=== PATIENT | male | born 1945 | race Caucasian/White ===

== ENCOUNTER 2016-04-09 18:59 | Inpatient (IN) | payer MEDICARE, BC ==
--- NOTE | 2016-04-09 19:17 | ED ---
Altered Mental Status - HPI Summary HPI Summary: Patient presents for evaluation of altered mental status from home. Son found him sonorous and called EMS. EMS arrived to find him hypotensive and minimally responsive. Gave 2 mg of intranasal narcan and 1.6 mg if IV narcan with improvement to responsiveness. 3 weeks ago. He lives alone. He claims to have forgotten how much morphine he took. Denies taking other medications. Unreliable history due to circumstances and alteration. - History Of Current Complaint Chief Complaint: EDAltMentalStatus Stated Complaint: POSS OVERDOSE Time Seen by Provider: 04/09/16 19:08 Hx Obtained From: Patient, Family/Pointer Machine Operator, EMS Hx From Patient Unobtainable Due To: Altered Mental Status Onset/Duration: Unknown Timing: Constant Severity Initially: Severe Severity Currently: Moderate Character: Confusion Alleviating Factor(s): Unknown - Allergies/Home Medications Allergies/Adverse Reactions: Allergies Allergy/AdvReac Type Severity Reaction Status Date / Time Indomethacin [From Indocin] Allergy ringing in Verified 03/09/16 22:32 ears, "turn rachel" PMH/Surg Hx/FS Hx/Imm Hx Previously Healthy: No Cardiovascular History: Reports: Hx Hypotension History: Reports: Hx Kidney Stones Musculoskeletal History: Reports: Other Musculoskeletal History - chronic lower spine pain Neurological History: Reports: Other Neuro Impairments/Disorders - Parkinson's Psychiatric History: Reports: Hx Post Traumatic Stress Disorder Denies: Hx Eating Disorder, Hx of Violent Episodes Against Others - Family History Known Family History: Positive: Cardiac Disease Negative: Hypertension, Diabetes - Social History Alcohol Use: None Substance Use Type: Reports: None Substance Use Comment - Amount & Last Used: prescribed morphine for back pain Smoking Status (MU): Light Every Day Tobacco Smoker Type: Cigars Review of Systems All Other Systems Reviewed And Are Negative: Yes - Comments Additional Review of Systems Comments: Unable to perform ROS due to altered mental status. Physical Exam Triage Information Reviewed: Yes Vital Signs Reviewed: Yes Completion Of Physical Exam Limited Due To: Altered Mental Status Appearance: Positive: Well-Appearing, No Pain Distress, Well-Nourished Skin: Positive: Warm, Skin Color Reflects Adequate Perfusion, Dry Head/Face: Positive: Normal Head/Face Inspection Eyes: Positive: Normal, EOMI, GUANAKO ENT: Positive: Normal ENT inspection, Hearing grossly normal, Pharynx normal Neck: Positive: Supple, Nontender, No Lymphadenopathy Respiratory/Lung Sounds: Positive: Clear to Auscultation, Breath Sounds Present Cardiovascular: Positive: Normal, Pulses are Symmetrical in both Upper and Lower Extremities, Tachycardia Abdomen Description: Positive: Nontender, No Organomegaly, Soft Musculoskeletal: Positive: Normal, Strength/ROM Intact Neurological: Positive: Disoriented, Unable to Assess Gait, Facial Symmetry. Negative: Receptive Aphasia, Expressive Aphasia, Babinski Left, Babinski Right, Babinski Bilateral, Facial Droop, Focal Deficit @, Slurred Speech, Dysarthric Aphasia Diagnostics - Laboratory Result Diagrams: 04/09/16 19:15 04/09/16 19:15 Lab Statement: Any lab studies that have been ordered have been reviewed, and results considered in the medical decision making process. - EKG No standard instances EKG Rhythm: Sinus Tachycardia ST Segment: Normal Ectopy: None - Normal ND/QRS/QTC Altered Mental Statu Course/Dx - Diagnoses Differential Diagnosis/HQI/PQRI: CVA, Intracranial Bleed, Medication Reaction, Metabolic Disorder, Overdose, Other - Unclear whether this was overdose, metabolic derangement, ICH. Possible psychiatric cause due to grief. Planned admission for further evaluation. Discharge Diagnoses: Intentional overdose of drug in tablet form, Severe major depression - Provider Notifications Discussed Care Of Patient With: Discussed case with Dr. Morocho and patient' s brother, Fortino, to further discover that patient has been giving money and objects away, trying to meet women on line, hung herself in the home 4 weeks ago, lives alone, and now left a note that he was going to kill himself. He needs admission for medical stabilization; however, has high SI/HI risk and needs psychiatric evaluation once medically stable. Instructed by Provider To: Admit As Inpatient - Critical Care Time Critical Care Time: 30-74 min Discharge - Discharge Plan Condition: Guarded Disposition: ADMITTED TO [facility]
[2016-04-09 19:22] LABS: Hematocrit 45 % (42-52); Hemoglobin 14.8 g/dl (14.0-18.0); Mean Corpuscular HGB Conc 33 g/dl (31-36); Mean Corpuscular Hemoglobin 32 pg (27-31); Mean Corpuscular Volume 97 fL (80-94); Mean Platelet Volume 8 um3 (7.4-10.4); Red Blood Count 4.62 10^6/ul (4.0-5.4); Red Cell Distribution Width 13 % (10.5-15); White Blood Count 14.5 10^3/ul (3.5-10.8)
[2016-04-09 19:38] LABS: ALT 18 U/L (7-52); AST 23 U/L (13-39); Albumin 3.9 g/dL (3.2-5.2); Alkaline Phosphatase 66 U/L (34-104); Anion Gap 6 mmol/L (2-11); BUN/Creatinine Ratio 15.3 (8-20); Blood Urea Nitrogen 20 mg/dL (6-24); CO2 Carbon Dioxide 24 mmol/L (22-32); Chloride 104 mmol/L (101-111); EGFR African American 69.8 (>60); EGFR Non-African American 54.3 (>60); Globulin 3.1 g/dL (2-4); Glucose 223 mg/dL (70-100); Potassium 4.3 mmol/L (3.5-5.0); Sodium 134 mmol/L (133-145)
--- NOTE | 2016-04-09 19:47 | RAD ---
HISTORY: Altered mental status COMPARISONS: None TECHNIQUE: Multiple contiguous axial CT scans were obtained of the head without intravenous contrast. FINDINGS: The study is limited by patient motion artifact. HEMORRHAGE/INFARCT: There is no hemorrhage or acute infarct. MASSES/SHIFT: There is no mass or shift. EXTRA-AXIAL SPACES: There are no extra-axial fluid collections. SULCI AND VENTRICLES: The sulci and ventricles are normal in size and position for the patient's stated age. CEREBRUM: There are no focal parenchymal abnormalities. BRAINSTEM: There are no focal parenchymal abnormalities. CEREBELLUM: There are no focal parenchymal abnormalities. VESSELS: The vessels are grossly normal. PARANASAL SINUSES: The paranasal sinuses are clear. ORBITS: The orbits are unremarkable. BONES AND SOFT TISSUE: No bone or soft tissue abnormalities are noted. OTHER: None IMPRESSION: NO ACUTE INTRACRANIAL PATHOLOGY.
--- NOTE | 2016-04-09 19:50 | RAD ---
HISTORY: Altered mental status COMPARISONS: September 17, 2015 VIEWS:1: Single frontal portable view of the chest at 7:36 PM FINDINGS: LINES AND TUBES: None. CARDIOMEDIASTINAL SILHOUETTE: The cardiomediastinal silhouette is normal for portable technique. PLEURA: The costophrenic angles are sharp. No pleural abnormalities are noted. LUNG PARENCHYMA: There is hyperinflation. There is stable pleural parenchymal scarring of the right midlung. There is patchy alveolar opacification lung bases bilaterally ABDOMEN: The upper abdomen is clear. There is no subphrenic gas. BONES AND SOFT TISSUES: No bone or soft tissue abnormalities are noted. IMPRESSION: HYPERINFLATION WITH BIBASILAR PATCHY ATELECTASIS VERSUS EARLY CONSOLIDATION
[2016-04-09] MEDS ORDERED: Naloxone* 0.4 MG/ML 10 ML VIAL ONE ×2 (19:55→23:20)
[2016-04-09 19:58] LABS: Acetaminophen < 15 mcg/mL; Salicylate < 2.50 mg/dL (<30)
[2016-04-09] MEDS ORDERED: Naloxone* 0.4 MG/ML 1 ML VIAL IV PUSH ONE (19:59)
[2016-04-09 20:10] LABS: Urine Bacteria Absent (Absent); Urine Bilirubin Negative (Negative); Urine Glucose Negative (Negative); Urine Nitrite Negative (Negative)
[2016-04-09] MEDS ORDERED: Piperac/Tazob 3.375 gm in NS* 3.375 GM/100 ML BAG IVPB ONE (21:00)
[2016-04-09] MEDS: Naloxone* 2 MG in NS 0.9% 250 ML* 245 ML IV SCH ×2 (21:00→23:17)
--- NOTE | 2016-04-09 21:14 | PN ---
Progress Note - Progress Note Note: Discussed with Yovani Welch NP. Mr Joshua is a 70YO male HX suicide attempts unfortunately lost his 2016 who hung herself at their home. He was found by his son this evening to be lethargic after having taken all the morphine he had on hand. Mr Joshua denied suicidal attempt in the ED, but the officer who investigated reported his cell phone was found next to him with an unsent suicide email. Will monitor closely and obtain psychiatric consultation once medically stable. The potential for ECT should be specifically addressed.
[2016-04-09] MEDS ORDERED: NS 0.9% 1000 ML* 1,000 ML IV SCH (21:30)
--- NOTE | 2016-04-09 21:39 | HP ---
AMENDED REPORT NOW INCLUDES COSIGNER DESIGNATION - ESIGNED BEFORE ADJUSTMENT HISTORY AND PHYSICAL: DATE OF ADMISSION: 04/09/16 PRIMARY CARE PHYSICIAN: At the [facility], physician not listed. ATTENDING PHYSICIAN: Dr. Raphael Rojo * (dictation provided by Lisa Welch NP) CHIEF COMPLAINT: Overdose with suicide attempt. HISTORY OF PRESENT ILLNESS: Mr. Joshua is a 70-year-old male with a past medical history of depression, PTSD, and chronic back pain who presented to the hospital today after being found next to an empty bottle of morphine and a suicide note by a neighbor. The patient is unresponsive and not able to provide details. Information was obtained from the medical record and from the patient's brother, who is at the bedside. 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 The patient hung herself and was discovered by the patient on 03/17/16. The patient had significant distress after this and was ultimately hospitalized at [facility] and then transferred to the [facility]. He spent several weeks at these facilities undergoing treatment. The patient was felt to be stable and discharged to home. The patient does have an ongoing history of PTSD for which he is declared "totally disabled" per his brother. He has had a history of suicide attempt in 2001 per our records. In addition to these psychiatric problems, the patient's brother reports that he has chronic back pain related to a back surgery that "went wrong " and he also has a history of Parkinson's disease, which was recently diagnosed. Apparently today, the patient's neighbor, who frequently visits, came to the home and found the patient next to an empty bottle of morphine with a suicide note. In the emergency room, Mr. Joshua was given Narcan. At the time of my evaluation, his respiratory rate is greater than 10, his O2 saturation is greater than 95% on 3 L nasal cannula. He arouses to voice, but is fairly incoherent. Based on Mr. Joshua's presentation with narcotic overdose and suicide attempt, Hospital Medicine was called regarding admission. PAST MEDICAL HISTORY: 1. PTSD. 2. Chronic back pain, on narcotics. 3. Depression. 4. Suicide attempt. 5. Parkinson's disease. MEDICATIONS: The police brought in several dozen bottles of the patient's medications and the nursing staff are currently going through those. The H and P will be amended when the list is available and complete. ALLERGIES: INDOMETHACIN. FAMILY HISTORY: Unobtainable. SOCIAL HISTORY: Unobtainable. REVIEW OF SYSTEMS: Unobtainable. PHYSICAL EXAMINATION GENERAL: Mr. Joshua is lying in bed, he is in no acute distress. VITAL SIGNS: Temperature 97.4, heart rate 107, respiratory rate 12, O2 saturation 97% on 3 L, and blood pressure 114/77. LUNGS: With coarse rhonchi bilaterally, but good aeration. No accessory muscle use. HEART: S1 and S2. No murmur, rub, or gallop and regular. ABDOMEN: Soft and nontender with bowel sounds positive x4. EXTREMITIES: No cyanosis or edema. NEUROLOGIC: He arouses easily to voice. He opens his eyes. He follows commands. He is not speaking at this time. He is nodding his head. He seemed to move all extremities equally. There is no fascial asymmetry. SKIN: Intact. LABORATORY DATA: WBC 14.5, hemoglobin 14.8, hematocrit 45, platelet count 188 , INR 0.97. Sodium 134, potassium 4.3, chloride 104, serum bicarbonate 24, BUN 20, creatinine 1.31, glucose 223, lactic acid 2.1. Urine shows no evidence of infection. Tox screen shows no salicylates or acetaminophens. CT of the brain shows no acute intracranial pathology. Chest x-ray shows hyperinflation with bibasilar patchy atelectasis versus early consolidation. ASSESSMENT: Mr. Joshua is a 70-year-old male with a past medical history of depression, suicide attempt, posttraumatic stress disorder, and Parkinson's disease who presents to the hospital today after being found next to an empty bottle of morphine with a suicide note. Our plans are for inpatient admission to the intensive care unit as I expect his length of stay to be greater than 2 days for the followin. Narcotic overdose and suicide attempt: The patient has responded well to Narcan thus far in the emergency room. His respiratory rate is actually over 20 and he is arousing easily to stimulation. Plan to continue to monitor, but will start a Narcan drip if and when that is necessary. The patient will be seen by Psychiatry when he is awake and able to speak with them. I will note that he was hospitalized at [facility] and then at [facility] in [place]. The patient will have a one-to- one. 2. Question of aspiration pneumonia: The patient does have rhonchi on examination and there is question of consolidation with the x-ray. The patient also has leukocytosis to 14. I think he is at high risk for aspiration pneumonia and we will start Zosyn tonight. This can be de-escalated if there is no clear evidence of aspiration as the clinical course involves. 3. Parkinson's disease. The patient's medication list is being updated once he is more arousable and awake and interactive. We can resume his medications. 4. History of chronic back pain. Once the patient is arousable, will likely need to resume some form of narcotic for him or else he will go into withdrawal. We will look to do that tomorrow. 5. DVT prophylaxis with heparin subcu. 6. Disposition to intensive care unit. 7. Code status is full code for now until he is able to make decisions. TIME SPENT: Approximately 60 minutes were spent on the admission of this patient, more than half the time spent with the patient at the bedside reviewing the events leading up to this hospitalization, performing the physical examination, and reviewing [place] [id number]/ISABELLE #: [id number] BINU
[2016-04-09] MEDS ORDERED: NS 0.9% 250 ML* 250 ML ONE ×3 (22:59→23:00)
[2016-04-09] MEDS: Heparin VIAL(*) 5000 UNITS/ML VIAL (FIVE THOUSAND) SUBCUT SCH (23:31)
[2016-04-10] MEDS: Piperac/Tazob 3.375 gm in NS* 3.375 GM/100 ML BAG IVPB SCH ×2 (01:50→08:28)
[2016-04-10] MEDS: Naloxone* 2 MG in NS 0.9% 250 ML* 245 ML IV SCH ×2 (03:26→05:04)
[2016-04-10] MEDS: Heparin VIAL(*) 5000 UNITS/ML VIAL (FIVE THOUSAND) SUBCUT SCH ×3 (05:07→21:00)
[2016-04-10 05:28] LABS: Hematocrit 39 % (42-52); Mean Corpuscular HGB Conc 33 g/dl (31-36); Mean Corpuscular Hemoglobin 32 pg (27-31); Mean Corpuscular Volume 98 fL (80-94); Mean Platelet Volume 9 um3 (7.4-10.4); Red Blood Count 4.03 10^6/ul (4.0-5.4); Red Cell Distribution Width 13 % (10.5-15); White Blood Count 10.7 10^3/ul (3.5-10.8)
[2016-04-10 05:39] LABS: BUN/Creatinine Ratio 12.6 (8-20); Calcium 7.9 mg/dL (8.6-10.3); EGFR African American 92.1 (>60); EGFR Non-African American 71.6 (>60); Potassium 3.9 mmol/L (3.5-5.0)
[2016-04-10] MEDS ORDERED: Naloxone* 0.4 MG/ML 10 ML VIAL ONE (07:16)
--- NOTE | 2016-04-10 10:56 | PN ---
Subjective Date of Service: 04/10/16 Interval History: Mr. Joshua states that he is feeling well this morning though a little groggy. He denies suicidal ideation at this time. He denies other complaint including chest pain, SOB, nausea, or abdominal pain. Objective Active Medications: Acetaminophen (Tylenol Tab*) 650 mg PO Q6H PRN Heparin Sodium (Porcine) (Heparin Vial(*)) 5,000 units SUBCUT Q8HR SPENCER Ondansetron HCl (Zofran Inj*) 4 mg IV Q6H PRN Vital Signs 04/09/16 04/09/16 04/09/16 20:00 20:04 20:25 Temperature 98.6 F Pulse Rate 112 97 86 Respiratory 16 10 10 Rate Blood Pressure 99/68 111/71 117/73 (mmHg) O2 Sat by Pulse 97 100 97 Oximetry 04/09/16 04/09/16 04/09/16 20:41 20:45 21:00 Temperature Pulse Rate 108 100 Respiratory 9 16 14 Rate Blood Pressure 115/82 111/71 (mmHg) O2 Sat by Pulse 99 100 Oximetry 04/09/16 04/09/16 04/09/16 21:15 21:30 21:35 Temperature Pulse Rate 97 93 Respiratory 10 9 9 Rate Blood Pressure 112/80 98/71 (mmHg) O2 Sat by Pulse 100 99 Oximetry 04/09/16 04/09/16 04/09/16 21:46 22:00 22:15 Temperature Pulse Rate 83 82 79 Respiratory 8 11 7 Rate Blood Pressure 89/60 89/64 83/61 (mmHg) O2 Sat by Pulse 99 99 98 Oximetry 04/09/16 04/09/16 04/09/16 22:30 22:45 23:00 Temperature Pulse Rate 103 101 93 Respiratory 10 11 9 Rate Blood Pressure 119/84 123/82 99/68 (mmHg) O2 Sat by Pulse 100 100 96 Oximetry 04/09/16 04/09/16 04/09/16 23:15 23:25 23:30 Temperature 98.3 F Pulse Rate 83 82 Respiratory 14 9 Rate Blood Pressure 88/63 93/78 (mmHg) O2 Sat by Pulse 97 97 Oximetry 04/09/16 04/10/16 04/10/16 23:45 00:00 00:01 Temperature Pulse Rate 86 81 81 Respiratory 6 8 5 Rate Blood Pressure 100/66 89/59 (mmHg) O2 Sat by Pulse 96 97 97 Oximetry 04/10/16 04/10/16 04/10/16 00:15 00:17 00:30 Temperature Pulse Rate 81 82 Respiratory 9 10 Rate Blood Pressure 93/73 87/63 (mmHg) O2 Sat by Pulse 98 99 Oximetry 04/10/16 04/10/16 04/10/16 00:36 00:45 01:00 Temperature Pulse Rate 84 78 Respiratory 9 9 8 Rate Blood Pressure 120/74 89/72 (mmHg) O2 Sat by Pulse 98 96 Oximetry 04/10/16 04/10/16 04/10/16 01:15 01:30 01:45 Temperature Pulse Rate 80 84 77 Respiratory 10 9 6 Rate Blood Pressure 94/62 104/75 106/58 (mmHg) O2 Sat by Pulse 97 99 98 Oximetry 04/10/16 04/10/16 04/10/16 02:00 02:15 02:28 Temperature Pulse Rate 76 73 Respiratory 7 6 7 Rate Blood Pressure 88/65 110/74 (mmHg) O2 Sat by Pulse 98 97 Oximetry 04/10/16 04/10/16 04/10/16 02:30 02:31 02:45 Temperature Pulse Rate 86 95 Respiratory 8 11 14 Rate Blood Pressure 112/68 115/71 (mmHg) O2 Sat by Pulse 99 99 Oximetry 04/10/16 04/10/16 04/10/16 03:00 03:15 03:30 Temperature Pulse Rate 89 87 87 Respiratory 12 9 7 Rate Blood Pressure 119/70 116/77 83/61 (mmHg) O2 Sat by Pulse 100 100 98 Oximetry 04/10/16 04/10/16 04/10/16 03:35 03:45 04:00 Temperature 98.5 F Pulse Rate 87 83 Respiratory 9 12 Rate Blood Pressure 107/68 109/73 (mmHg) O2 Sat by Pulse 99 94 Oximetry 04/10/16 04/10/16 04/10/16 04:29 04:32 05:00 Temperature Pulse Rate 92 82 Respiratory 12 19 11 Rate Blood Pressure 106/74 97/67 (mmHg) O2 Sat by Pulse 99 96 Oximetry 04/10/16 04/10/16 04/10/16 05:30 06:00 06:30 Temperature Pulse Rate 86 78 78 Respiratory 12 8 9 Rate Blood Pressure 108/72 103/69 97/70 (mmHg) O2 Sat by Pulse 99 96 96 Oximetry 04/10/16 04/10/16 04/10/16 07:00 07:13 07:30 Temperature 98.8 F Pulse Rate 95 89 Respiratory 17 12 Rate Blood Pressure 129/79 114/70 (mmHg) O2 Sat by Pulse 100 100 Oximetry 04/10/16 04/10/16 04/10/16 08:00 08:30 09:00 Temperature Pulse Rate 84 92 91 Respiratory 8 17 11 Rate Blood Pressure 111/75 126/85 127/72 (mmHg) O2 Sat by Pulse 97 97 98 Oximetry 04/10/16 09:30 Temperature Pulse Rate 88 Respiratory 9 Rate Blood Pressure 127/81 (mmHg) O2 Sat by Pulse 94 Oximetry Oxygen Devices in Use Now: None Appearance: Male sitting up in bed in NAD Eyes: No Scleral Icterus Respiratory: Symmetrical Chest Expansion and Respiratory Effort, Clear to Auscultation Cardiovascular: NL Sounds; No Murmurs; No JVD, No Edema Abdominal: NL Sounds; No Tenderness; No Distention Extremities: No Edema Skin: No Rash or Ulcers Neurological: Alert and Oriented x 3, NL Muscle Strength and Tone Nutrition: Taking PO's Result Diagrams: 04/10/16 05:05 04/10/16 05:05 Microbiology and Other Data: Microbiology 04/09/16 20:00 Nasal Screen MRSA (PCR)([facility]) - Final Nasal Mrsa Negative Assess/Plan/Problems-Billing Assessment: Mr. Joshua is a 70 yo male with a PMH of depression, PTSD, and parkinson's disease who recently experienced the suicide of his who had stage IV cancer who was admitted on 04/09/16 after narcotic overdose in suicide attempt. - Patient Problems (1) Narcotic overdose Comment: Pt alert and oriented. Stop narcan gtt. (2) Suicide attempt Comment: Patient denies suicidal ideation this morning. Continue one to one. Psych consult placed. (3) Aspiration pneumonia Comment: No evidence of pneumonia. Stop zosyn. (4) Parkinson disease Comment: Efforts to complete medication reconcilliation continue, plan to continue sinemet. (5) Chronic back pain Comment: Patient comfortable this morning. Plan to determine home medications and continue as appropriate. (6) DVT prophylaxis Comment: Heparin SQ. (7) Full code status Status and Disposition: Inpatient with expected LOS > 2 days. Patient will need inpatient psychiatric care, may need transfer, previously a patient at [facility].
[2016-04-10] MEDS ORDERED: oxyCODONE/Acetamin 5/325 MG* TAB PO PRN (11:02)
[2016-04-10] MEDS ORDERED: Naloxone* 2 MG in NS 0.9% 250 ML* 245 ML IV SCH (12:00)
[2016-04-10] MEDS ORDERED: Naloxone* 0.4 MG/ML 1 ML VIAL ONE ×2 (12:02→19:36)
[2016-04-10] MEDS: NALOXONE IV SCH ×3 (13:54→21:01)
[2016-04-10] MEDS: NS 0.9% IV SCH ×3 (13:54→21:01)
[2016-04-10] MEDS ORDERED: Naloxone* 0.4 MG/ML 1 ML VIAL IV PUSH ONE (19:35)
--- NOTE | 2016-04-10 19:50 | CONS ---
CONSULTATION REPORT: DATE OF CONSULT: 04/10/16 PSYCHIATRIC CONSULTATION REQUESTED BY: Lisa Welch NP. CONSULTATION QUESTION: Left message on [facility] regarding suicide attempt. IDENTIFICATION: Mr. Joshua is a retired 70-year-old man who was in the [place] war who reports PTSD therefrom. He has been psychiatrically hospitalized several times before and has a history of prior suicide attempts and a recent prior suicidality over the past 3 months. He was found unresponsive by a neighbor with an empty bottle of morphine and with a note that was interpreted as a suicide note at the time. He lives alone. HISTORY OF PRESENT ILLNESS: Information was gathered by interview with the patient and the patient permitted me to speak with his son and his neighbor; also review of the electronic medical records. Mr. Joshua is trying to make the case to me that this was not a suicide attempt , that he did not take too many medications intentionally, that it was just the end of a prescription for which there were only a few tablets left that he took for pain provoked by shoveling snow. His report does not agree, however, with needing a large amount of Narcan to reverse unresponsiveness due to a large amount of narcotic in his system. Also, the patient omitted in his report to me information gathered from his son that this is the third time in 3 months that he has been suicidal. In January he was transferred to the [facility] in [place] for a 1-week hospitalization under Dr. Cardenas for suicidality. Between then and now, he called a suicide prevention hotline resulting in evaluation here in the [facility] for 2 days and again transfer to the [facility] in [place] for a second psychiatric admission in the past 3 months, at that time under the care of Dr. Blanchard. I reviewed with Mr. Joshua the symptoms of depression. He reports that his mood has been "half ways decent lately." When asked if he is feeling depressed , he says that he has depressive symptoms related to his PTSD. 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 He has been aided in his application for this program by his outpatient [place] psychiatrist, Dr. Moss. He denies any feelings of guilt or worthlessness. He reports his energy as "like sh--" due to Parkinson's disorder and the weather. He reports no difficulties with concentration or decision making, appetite, or weight. He reports that his last episode of suicidal ideation was 2 years ago when he thought he was in [facility] again due to very hot and humid weather in this area. He denies ever any history of trung , denies ever having had racing thoughts, talking fast, decreased need for sleep , increased goal directed activities, or days long shift of mood to euphoric or irritable. He reports a strong history for PTSD with nightmares related to his experience in the [place] war. He endorses avoidance, numbing, and hypervigilance symptomatology as well. He denies any symptoms of OCD. He denies any past experience of psychosis. He does not report any particular difficulties with anxiety. SUBSTANCE ABUSE HISTORY: The patient reports that he gave up alcohol about 30 years ago on advice of a care provider who said that was necessary in order to determine whether or not his symptoms were PTSD related or alcohol related. He reports the PTSD symptoms did persist with abstinence from alcohol and he chose to remain abstinent of alcohol from then on. He denies any history of abuse of illicit substances. He reports that he will have 4 to 5 cups of coffee per day. He does not smoke cigarettes, but does smoke "little cigars." PAST MEDICAL HISTORY: He has Parkinson's disease and back pain. He is currently in the ICU on Narcan drip to reverse overdose on opioid medication. He reports receiving acupuncture treatments, which are helpful for the back pain. SOCIAL HISTORY: He reports having grown up in [place], [place]. Reports having done well in school, in fact the top of his class. 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 He reports 2 marriages, both about 23 years long. He has 4 children who are all doing well. His second marriage ended with the suicide of his , despondent at looming demise from breast cancer. The son and neighbor confirmed his report that her suicide was not 03/17/16 as reported in Ms Welch s H&P, but was in April 2012. He does live alone. The son has raised some question as to whether he may be involved with women on online dating services that are taking his money. He has this concern in part because his father is talking about needing to take out loans. MENTAL STATUS EXAMINATION: This is a pleasant man who makes good eye contact. His speech has regular rate, rhythm, and volume. He shows no gross deficits of memory, attention, or cognition. He is alert and oriented to person, place, time, and situation. He reports his mood as "half ways decent." His affect is constricted to euthymic. He shows poor insight and judgment in comparing his report of events to that of the son and the neighbor. He denies any auditory or visual hallucinations or paranoid ideation. Also denies any suicidal ideation or homicidal ideation, but fails to report recent hospitalizations due to suicidality. His thought process is linear and goal directed. His grooming and hygiene are appropriate to the setting. PHYSICAL EXAMINATION, LABORATORY VALUES, AND VITAL SIGNS: Please see documentation from the ongoing care on the ICU for details of this. ASSESSMENT AND RECOMMENDATIONS: All collateral sources indicated that Mr. Joshua has in past similar situations of evaluation of events demonstrating suicidality made a strong effort to minimize and dissemble in order to be discharged prematurely. This appears to be occurring again on this occasion, as evidenced in part by the fact that he is requiring a lengthy treatment with Narcan drip to reverse what he claims was brought on by only a few tabs of morphine. His son and neighbor are both concerned that he might be discharged without adequate treatment given that he will be pushing strongly for discharge. My assessment is that the event that brought him into the hospital has a high probability of having been a suicide attempt. I therefore recommend referral for further assessment and treatment of his psychiatric illness. This [facility] gentleman should be transferred to the [facility] for further treatment, or else it may be possible to make arrangements with the CT for funding of treatment at this hospital. I have asked the emergency department biochemist who is familiar with transfer procedures to the CT and to determine whether a transfer may be possible or if admission here can be funded by the [place]. If admitted here, initial admission tasks will include gathering collateral from prior treaters. DIAGNOSIS: Posttraumatic stress disorder, rule out major depressive disorder. [id number]/[facility] #: [id number] BINU
[2016-04-10] MEDS: Ondansetron INJ* 2 MG/ML VIAL IV PRN (19:57)
[2016-04-10] MEDS: Topiramate TAB(*) 100 MG PO SCH (20:59)
[2016-04-10] MEDS: Metoclopramide TAB* 10 MG PO SCH (20:59)
[2016-04-11] MEDS: Acetaminophen TAB* 325 MG PO PRN ×2 (03:27→10:59)
[2016-04-11] MEDS: NALOXONE IV SCH (06:05)
[2016-04-11] MEDS: NS 0.9% IV SCH (06:05)
[2016-04-11] MEDS: Heparin VIAL(*) 5000 UNITS/ML VIAL (FIVE THOUSAND) SUBCUT SCH ×3 (06:06→21:23)
[2016-04-11] MEDS: Metoclopramide TAB* 10 MG PO SCH ×3 (08:10→21:22)
[2016-04-11] MEDS: DULoxetine DR CAP* 30 MG CAP.DR PO SCH (08:11)
[2016-04-11] MEDS: Omeprazole CAP* 20 MG PO SCH (08:11)
[2016-04-11] MEDS: Topiramate TAB(*) 100 MG PO SCH ×2 (08:11→21:23)
[2016-04-11] MEDS ORDERED: Atorvastatin* 80 MG TAB PO SCH (09:00)
--- NOTE | 2016-04-11 09:49 | PN ---
Subjective Date of Service: 04/11/16 Interval History: Mr. Joshua states that he is feeling well this morning. He denies chest pain, SOB, nausea, or abdominal pain. Objective Active Medications: Acetaminophen (Tylenol Tab*) 650 mg PO Q6H PRN Atorvastatin Calcium (Lipitor*) 40 mg PO DAILY [facility] Duloxetine HCl (Cymbalta Cap*) 30 mg PO QAM [facility] Heparin Sodium (Porcine) (Heparin Vial(*)) 5,000 units SUBCUT Q8HR [facility] Metoclopramide HCl (Reglan Tab*) 5 mg PO TID [facility] Omeprazole (Prilosec Cap*) 40 mg PO 0730 [facility] Ondansetron HCl (Zofran Inj*) 4 mg IV Q6H PRN Oxycodone/Acetaminophen (Percocet 5/325 Tab*) 2 tab PO Q4H PRN Topiramate (Topamax(*)) 100 mg PO BID [facility] Vital Signs 04/10/16 04/10/16 04/10/16 10:00 10:30 11:00 Temperature Pulse Rate 103 99 97 Respiratory 10 12 17 Rate Blood Pressure 113/70 108/72 111/71 (mmHg) O2 Sat by Pulse 94 91 93 Oximetry 04/10/16 04/10/16 04/10/16 11:30 12:00 12:30 Temperature 98.2 F Pulse Rate 111 108 100 Respiratory 13 12 11 Rate Blood Pressure 114/70 156/86 135/85 (mmHg) O2 Sat by Pulse 91 92 99 Oximetry 04/10/16 04/10/16 04/10/16 13:00 13:30 14:00 Temperature Pulse Rate 95 105 101 Respiratory 11 13 9 Rate Blood Pressure 137/84 118/85 128/80 (mmHg) O2 Sat by Pulse 99 92 92 Oximetry 04/10/16 04/10/16 04/10/16 14:30 15:00 15:30 Temperature Pulse Rate 107 101 97 Respiratory 17 5 14 Rate Blood Pressure 135/75 115/65 123/68 (mmHg) O2 Sat by Pulse 96 95 96 Oximetry 04/10/16 04/10/16 04/10/16 16:00 16:30 17:00 Temperature 100.4 F Pulse Rate 99 101 90 Respiratory 11 17 14 Rate Blood Pressure 128/69 126/65 134/82 (mmHg) O2 Sat by Pulse 96 97 96 Oximetry 04/10/16 04/10/16 04/10/16 17:30 18:00 18:30 Temperature Pulse Rate 92 102 98 Respiratory 11 14 14 Rate Blood Pressure 125/73 123/81 127/80 (mmHg) O2 Sat by Pulse 94 96 95 Oximetry 04/10/16 04/10/16 04/10/16 19:00 19:30 19:58 Temperature Pulse Rate 100 98 Respiratory 13 13 8 Rate Blood Pressure 120/68 124/76 (mmHg) O2 Sat by Pulse 95 94 Oximetry 04/10/16 04/10/16 04/10/16 20:00 20:30 20:39 Temperature 100.5 F Pulse Rate 85 93 Respiratory 9 9 Rate Blood Pressure 143/82 141/78 (mmHg) O2 Sat by Pulse 98 98 98 Oximetry 04/10/16 04/10/16 04/10/16 21:00 21:30 21:31 Temperature Pulse Rate 90 97 Respiratory 9 14 20 Rate Blood Pressure 141/78 143/96 (mmHg) O2 Sat by Pulse 97 98 Oximetry 04/10/16 04/10/16 04/10/16 22:00 22:30 23:00 Temperature Pulse Rate 98 97 99 Respiratory 18 13 12 Rate Blood Pressure 144/83 138/74 129/83 (mmHg) O2 Sat by Pulse 98 98 97 Oximetry 04/10/16 04/10/16 04/11/16 23:34 23:38 00:00 Temperature 101.6 F Pulse Rate 104 Respiratory 18 10 Rate Blood Pressure (mmHg) O2 Sat by Pulse 95 Oximetry 04/11/16 04/11/16 04/11/16 00:01 00:09 01:00 Temperature Pulse Rate 103 113 93 Respiratory 16 21 13 Rate Blood Pressure 127/66 142/72 (mmHg) O2 Sat by Pulse 92 95 97 Oximetry 04/11/16 04/11/16 04/11/16 02:00 03:00 03:50 Temperature Pulse Rate 92 96 Respiratory 9 11 11 Rate Blood Pressure 138/75 120/77 (mmHg) O2 Sat by Pulse 98 94 Oximetry 04/11/16 04/11/16 04/11/16 04:00 05:00 06:00 Temperature 100.2 F Pulse Rate 93 87 91 Respiratory 13 14 16 Rate Blood Pressure 129/78 141/86 125/77 (mmHg) O2 Sat by Pulse 93 99 99 Oximetry 04/11/16 04/11/16 07:00 07:57 Temperature 100.0 F Pulse Rate 100 Respiratory 10 Rate Blood Pressure 135/70 (mmHg) O2 Sat by Pulse 93 Oximetry Oxygen Devices in Use Now: None Appearance: Male sitting up in chair in NAD Respiratory: Symmetrical Chest Expansion and Respiratory Effort, Clear to Auscultation Cardiovascular: NL Sounds; No Murmurs; No JVD, No Edema Abdominal: NL Sounds; No Tenderness; No Distention Extremities: No Edema Skin: No Rash or Ulcers Neurological: Alert and Oriented x 3, NL Muscle Strength and Tone Nutrition: Taking PO's Result Diagrams: 04/10/16 05:05 04/10/16 05:05 Microbiology and Other Data: Microbiology 04/09/16 20:00 Nasal Screen MRSA (PCR)([facility]) - Final Nasal Mrsa Negative Assess/Plan/Problems-Billing Assessment: Mr. Joshua is a 70 yo male with a PMH of depression, PTSD, and parkinson's disease who recently experienced the suicide of his who had stage IV cancer who was admitted on 04/09/16 after narcotic overdose in suicide attempt. - Patient Problems (1) Narcotic overdose Comment: Pt became drowsy and continued to need narcan until 0400 this morning. Narcan gtt off since then, pt sitting up in chair eating breakfast. (2) Suicide attempt Comment: Patient denies suicidal ideation this morning. Continue one to one. Psych consult concurs that patient needs inpatient treatment. [facility] need to coordinate [facility]. (3) Fever Comment: Low grade fever persists. Blood cultures pending. Lungs CTAB. Question if related to narcotic withdrawal. Check CRP and procalcitonin. (4) Aspiration pneumonia Comment: No evidence of pneumonia but am evaluating fever. Received zosyn x 24 hours. (5) Parkinson disease Comment: Continue sinemet. (6) Chronic back pain Comment: Son reports that patient takes morphine for pain but it is not on med rec or noted in IStop. Plan to [facility] tomorrow for clarification. For now, patient will have oxycodone prn for back pain. (7) DVT prophylaxis Comment: Heparin SQ. (8) Full code status Status and Disposition: Inpatient with expected LOS > 2 days. Patient will need inpatient psychiatric care, may need transfer, previously a patient at [facility] and [place] [facility].
[2016-04-11 10:28] LABS: C Reactive Protein 2.52 mg/L (< 5.00)
[2016-04-11] MEDS: Ondansetron INJ* 2 MG/ML VIAL IV PRN ×2 (11:45→21:25)
[2016-04-11] MEDS: Carbidopa/Levodop 25/100 MG TAB(*) PO SCH ×3 (14:09→21:23)
[2016-04-11] MEDS: Gabapentin CAP(*) 300 MG PO SCH ×2 (14:09→21:11)
[2016-04-11] MEDS ORDERED: Naloxone* 0.4 MG/ML 1 ML VIAL IV PUSH PRN (16:11)
[2016-04-11] MEDS ORDERED: Naloxone* 0.4 MG/ML 1 ML VIAL IV PUSH ONE (18:59)
[2016-04-11] MEDS ORDERED: Naloxone* 2 MG in NS 0.9% 250 ML* 250 ML IV PRN (19:15)
--- NOTE | 2016-04-11 19:21 | PN ---
Progress Note - Progress Note Note: Patient noted to be significantly apneic though awakens to voice and follows commands. Patient vomited violently after both administrations of prn narcan, though did have improvement in mentation and breathing. Plan to transfer back to ICU for narcan gtt.
[2016-04-11] MEDS: Naloxone* 2 MG in NS 0.9% 250 ML* 245 ML IV SCH ×2 (21:25→23:35)
[2016-04-11 22:02] LABS: PCO2 Arterial 48 mmHg (35-45)
[2016-04-12] MEDS: Carbidopa/Levodop 25/100 MG TAB(*) PO SCH ×6 (02:20→21:13)
[2016-04-12] MEDS: Naloxone* 2 MG in NS 0.9% 250 ML* 245 ML IV SCH ×2 (03:43→09:21)
[2016-04-12 05:29] LABS: Hematocrit 40 % (42-52); Hemoglobin 13.4 g/dl (14.0-18.0); Mean Corpuscular HGB Conc 34 g/dl (31-36); Mean Corpuscular Hemoglobin 32 pg (27-31); Mean Corpuscular Volume 96 fL (80-94); Mean Platelet Volume 9 um3 (7.4-10.4); Red Blood Count 4.13 10^6/ul (4.0-5.4); Red Cell Distribution Width 13 % (10.5-15); White Blood Count 7.8 10^3/ul (3.5-10.8)
[2016-04-12] MEDS: Heparin VIAL(*) 5000 UNITS/ML VIAL (FIVE THOUSAND) SUBCUT SCH ×3 (06:04→21:17)
[2016-04-12] MEDS: Omeprazole CAP* 20 MG PO SCH (06:54)
[2016-04-12] MEDS ORDERED: Naloxone* 0.4 MG/ML 1 ML VIAL IV PUSH PRN (09:31)
[2016-04-12] MEDS: DULoxetine DR CAP* 30 MG CAP.DR PO SCH (09:41)
[2016-04-12] MEDS: Gabapentin CAP(*) 300 MG PO SCH ×3 (09:41→21:14)
[2016-04-12] MEDS: Topiramate TAB(*) 100 MG PO SCH ×2 (09:41→21:14)
[2016-04-12] MEDS: Metoclopramide TAB* 10 MG PO SCH ×3 (09:42→21:15)
[2016-04-12] MEDS: Atorvastatin* 40 MG TAB PO SCH (09:42)
--- NOTE | 2016-04-12 11:13 | PN ---
Subjective Date of Service: 04/12/16 Interval History: Patient seen and examined at bedside. 1:1 sitter in room with patient. He is sitting up eating breakfast. Mr. Joshua states, "I'm feeling pretty good this morning." He denies CP, SOB, fever/chills, abd pain, n/v. Telemetry: SR 80s Family History: Unchanged from Admission Social History: Unchanged from Admission Past Medical History: Unchanged from Admission Objective Active Medications: Acetaminophen (Tylenol Tab*) 650 mg PO Q6H PRN PRN Reason: PAIN Last Admin: 04/11/16 10:59 Dose: 650 mg Atorvastatin Calcium (Lipitor*) 40 mg PO DAILY [facility] Last Admin: 04/12/16 09:42 Dose: 40 mg Carbidopa/Levodopa (Sinemet 25/100 Tab(*)) 1 tab PO Q4HR [facility] Last Admin: 04/12/16 09:42 Dose: 1 tab Duloxetine HCl (Cymbalta Cap*) 30 mg PO QAM [facility] Last Admin: 04/12/16 09:41 Dose: 30 mg Gabapentin (Neurontin Cap(*)) 1,200 mg PO TID [facility] Last Admin: 04/12/16 09:41 Dose: 1,200 mg Heparin Sodium (Porcine) (Heparin Vial(*)) 5,000 units SUBCUT Q8HR [facility] Last Admin: 04/12/16 06:04 Dose: 5,000 units Metoclopramide HCl (Reglan Tab*) 5 mg PO TID [facility] Last Admin: 04/12/16 09:42 Dose: 5 mg Naloxone HCl (Narcan*) 0.4 mg IV PUSH Q1H PRN PRN Reason: NARCOTIC REVERSAL Omeprazole (Prilosec Cap*) 40 mg PO 0730 [facility] Last Admin: 04/12/16 06:54 Dose: 40 mg Ondansetron HCl (Zofran Inj*) 4 mg IV Q6H PRN PRN Reason: NAUSEA Last Admin: 04/11/16 21:25 Dose: 4 mg Oxycodone/Acetaminophen (Percocet 5/325 Tab*) 2 tab PO Q4H PRN PRN Reason: PAIN Topiramate (Topamax(*)) 100 mg PO BID [facility] Last Admin: 04/12/16 09:41 Dose: 100 mg Vital Signs 02/02/1304/11/16 04/11/16 12:00 15:25 16:00 Temperature 100.0 F 100.5 F Pulse Rate 102 Respiratory 10 Rate Blood Pressure 127/74 (mmHg) O2 Sat by Pulse 97 95 Oximetry 04/11/16 04/11/16 04/11/16 16:02 19:40 19:43 Temperature Pulse Rate 94 Respiratory 9 Rate Blood Pressure 145/79 (mmHg) O2 Sat by Pulse 95 92 Oximetry 04/11/16 04/11/16 04/11/16 19:45 20:00 20:15 Temperature 99.1 F Pulse Rate 100 95 94 Respiratory 10 8 11 Rate Blood Pressure 141/76 127/83 135/91 (mmHg) O2 Sat by Pulse 94 93 97 Oximetry 04/11/16 04/11/16 04/11/16 20:30 20:45 21:00 Temperature Pulse Rate 90 93 89 Respiratory 9 9 7 Rate Blood Pressure 141/85 134/83 139/74 (mmHg) O2 Sat by Pulse 97 96 96 Oximetry 04/11/16 04/11/16 04/11/16 21:30 21:58 22:00 Temperature Pulse Rate 95 90 Respiratory 15 7 Rate Blood Pressure 152/83 151/81 (mmHg) O2 Sat by Pulse 96 97 96 Oximetry 04/11/16 04/11/16 04/11/16 22:30 23:00 23:30 Temperature Pulse Rate 90 90 85 Respiratory 11 11 11 Rate Blood Pressure 154/76 143/79 146/81 (mmHg) O2 Sat by Pulse 97 97 96 Oximetry 04/11/16 04/12/16 04/12/16 23:35 00:00 00:01 Temperature 99.9 F Pulse Rate 83 84 Respiratory 13 12 Rate Blood Pressure 146/84 (mmHg) O2 Sat by Pulse 97 97 Oximetry 04/12/16 04/12/16 04/12/16 00:30 01:00 01:30 Temperature Pulse Rate 85 84 84 Respiratory 11 11 11 Rate Blood Pressure 139/76 159/78 145/82 (mmHg) O2 Sat by Pulse 97 98 97 Oximetry 04/12/16 04/12/16 04/12/16 02:00 02:30 03:00 Temperature Pulse Rate 82 96 96 Respiratory 9 12 21 Rate Blood Pressure 152/82 141/85 157/82 (mmHg) O2 Sat by Pulse 98 99 98 Oximetry 04/12/16 04/12/16 04/12/16 03:30 04:00 04:30 Temperature 98.8 F Pulse Rate 86 83 81 Respiratory 13 12 11 Rate Blood Pressure 143/78 147/76 132/74 (mmHg) O2 Sat by Pulse 98 98 97 Oximetry 04/12/16 04/12/16 04/12/16 05:00 05:30 06:00 Temperature Pulse Rate 78 80 79 Respiratory 14 10 13 Rate Blood Pressure 142/75 116/71 (mmHg) O2 Sat by Pulse 97 95 97 Oximetry 04/12/16 04/12/16 04/12/16 06:30 07:00 08:00 Temperature 99.5 F Pulse Rate 90 88 81 Respiratory 11 14 8 Rate Blood Pressure 132/71 141/76 144/95 (mmHg) O2 Sat by Pulse 99 99 99 Oximetry 04/12/16 04/12/16 04/12/16 08:24 09:00 10:00 Temperature Pulse Rate 81 87 Respiratory 9 10 Rate Blood Pressure 143/86 138/78 (mmHg) O2 Sat by Pulse 95 94 92 Oximetry Oxygen Devices in Use Now: None Appearance: Male patient, sitting up in bed, in NAD Eyes: PERRLA Ears/Nose/Mouth/Throat: Clear Oropharnyx, Mucous Membranes Moist Neck: NL Appearance and Movements; NL JVP Respiratory: Symmetrical Chest Expansion and Respiratory Effort, Clear to Auscultation Cardiovascular: NL Sounds; No Murmurs; No JVD, RRR Abdominal: NL Sounds; No Tenderness; No Distention Extremities: No Edema Skin: No Rash or Ulcers Neurological: Alert and Oriented x 3 Lines/Tubes/Other Access: Clean, Dry and Intact Peripheral IV Nutrition: Taking PO's Result Diagrams: 04/12/16 05:00 04/10/16 05:05 Microbiology and Other Data: Microbiology 04/09/16 20:00 Nasal Screen MRSA (PCR)([facility]) - Final Nasal Mrsa Negative Assess/Plan/Problems-Billing Assessment: Mr. Joshua is a 70 yo male with a PMH of depression, PTSD, and Parkinson's Disease who recently experienced the suicide of his who had stage IV cancer who was admitted on 04/09/16 after narcotic overdose in suicide attempt. - Patient Problems (1) Narcotic overdose Code(s): T40.601A - POISONING BY UNSP NARCOTICS, ACCIDENTAL, INIT Comment: Pt became drowsy and significantly apneic yesterday after naloxone gtt discontinued. Naloxone gtt restarted last evening and dose weaned overnight. Will stop this AM, as he is alert and oriented. Neuro checks q1 hours with prn naloxone available. (2) Suicide attempt Comment: Patient denies suicidal ideation this morning. Continue one to one monitoring. Psych consult concurs that patient needs inpatient treatment. Will need to coordinate with [facility]. CM/SW following (3) Aspiration pneumonitis Code(s): J69.0 - PNEUMONITIS DUE TO INHALATION OF FOOD AND VOMIT Comment: No evidence of pneumonia but presence of low grade fever that has since resolved. Patient received Zosyn x 24 hours. (4) Fever Code(s): R50.9 - FEVER, UNSPECIFIED Comment: Low grade fever, last noted on 04/11 at 1500. Blood cultures pending. Lungs CTAB. Suspect aspiration pneumonitis. Also question if related to narcotic withdrawal. CRP/procalcitionin WNL. (5) Parkinson disease Code(s): G20 - PARKINSON'S DISEASE Comment: Continue carbidopa/levodopa. (6) Chronic back pain Code(s): M54.9 - DORSALGIA, UNSPECIFIED; G89.29 - OTHER CHRONIC PAIN Comment: Son reports that patient takes morphine for pain, but it is not on med rec or noted in IStop. Plan to request progress note from [place] tomorrow for clarification. For now, patient will have oxycodone prn for back pain. (7) Post traumatic stress disorder (PTSD) Code(s): F43.10 - POST-TRAUMATIC STRESS DISORDER, UNSPECIFIED Comment: With known history of PTSD, ? major depressive disorder. Appreciate psych consult; patient will require inpatient treatment. Continue duloxetine. (8) DVT prophylaxis Code(s): VLV0583 - Comment: Heparin SQ (9) Full code status Code(s): Z78.9 - OTHER SPECIFIED HEALTH STATUS Status and Disposition: Inpatient with expected LOS > 2 days. Patient will need inpatient psychiatric care, may need transfer, previously a patient at [facility] and [place].
[2016-04-13] MEDS: Carbidopa/Levodop 25/100 MG TAB(*) PO SCH ×5 (02:10→17:57)
[2016-04-13] MEDS: Heparin VIAL(*) 5000 UNITS/ML VIAL (FIVE THOUSAND) SUBCUT SCH ×2 (06:05→14:34)
[2016-04-13] MEDS: DULoxetine DR CAP* 30 MG CAP.DR PO SCH (08:58)
[2016-04-13] MEDS: Atorvastatin* 40 MG TAB PO SCH (08:58)
[2016-04-13] MEDS: Omeprazole CAP* 20 MG PO SCH (08:58)
[2016-04-13] MEDS: Metoclopramide TAB* 10 MG PO SCH ×2 (08:59→14:34)
[2016-04-13] MEDS: Gabapentin CAP(*) 300 MG PO SCH ×2 (08:59→14:34)
[2016-04-13] MEDS: Topiramate TAB(*) 100 MG PO SCH (09:03)
--- NOTE | 2016-04-13 14:34 | PN ---
Subjective Date of Service: 04/13/16 Interval History: Patient seen and examined at bedside. Pt states that he is feeling well. Denies fever, chills, shortness of breath, chest discomfort, N/V/D. Pt states that he is urinating without difficulty since his urinary catheter has been removed. Family History: Unchanged from Admission Social History: Unchanged from Admission Past Medical History: Unchanged from Admission Objective Active Medications: Acetaminophen (Tylenol Tab*) 650 mg PO Q6H PRN Reason: PAIN Atorvastatin Calcium (Lipitor*) 40 mg PO DAILY [facility] Carbidopa/Levodopa (Sinemet 25/100 Tab(*)) 1 tab PO Q4HR [facility] Duloxetine HCl (Cymbalta Cap*) 30 mg PO QAM [facility] Gabapentin (Neurontin Cap(*)) 1,200 mg PO TID [facility] Heparin Sodium (Porcine) (Heparin Vial(*)) 5,000 units SUBCUT Q8HR [facility] Metoclopramide HCl (Reglan Tab*) 5 mg PO TID [facility] Naloxone HCl (Narcan*) 0.4 mg IV PUSH Q1H PRN Reason: NARCOTIC REVERSAL Omeprazole (Prilosec Cap*) 40 mg PO 0730 [facility] Ondansetron HCl (Zofran Inj*) 4 mg IV Q6H PRN Reason: NAUSEA Oxycodone/Acetaminophen (Percocet 5/325 Tab*) 2 tab PO Q4H PRN Reason: PAIN Topiramate (Topamax(*)) 100 mg PO BID [facility] Vital Signs 04/12/16 04/12/16 04/12/16 15:00 16:00 17:00 Temperature 98.9 F Pulse Rate 104 98 98 Respiratory 14 12 19 Rate Blood Pressure 150/83 148/83 136/72 (mmHg) O2 Sat by Pulse 91 90 89 Oximetry 04/12/16 04/12/16 04/12/16 18:00 19:00 19:45 Temperature Pulse Rate 85 Respiratory 14 15 15 Rate Blood Pressure 115/70 120/77 (mmHg) O2 Sat by Pulse 93 Oximetry 04/12/16 04/12/16 04/12/16 20:00 21:00 23:42 Temperature 99.7 F 98.0 F Pulse Rate 83 86 83 Respiratory 9 15 17 Rate Blood Pressure 140/84 137/78 (mmHg) O2 Sat by Pulse 94 97 98 Oximetry 02/04/13/16 04/13/16 01:17 02:23 04:35 Temperature 97.9 F Pulse Rate 85 Respiratory 16 Rate Blood Pressure 143/82 (mmHg) O2 Sat by Pulse 94 97 96 Oximetry 04/13/16 04/13/16 04/13/16 07:06 08:00 08:03 Temperature 97.9 F Pulse Rate 84 Respiratory 14 16 Rate Blood Pressure 119/70 (mmHg) O2 Sat by Pulse 84 94 94 Oximetry 04/13/16 04/13/16 04/13/16 08:31 08:59 10:59 Temperature Pulse Rate 83 Respiratory 16 16 Rate Blood Pressure (mmHg) O2 Sat by Pulse 97 Oximetry 04/13/16 13:48 Temperature 98.4 F Pulse Rate 91 Respiratory 17 Rate Blood Pressure 132/74 (mmHg) O2 Sat by Pulse 94 Oximetry Oxygen Devices in Use Now: Nasal Cannula - 3L Appearance: NAD, laying in bed. Eyes: No Scleral Icterus, PERRLA Ears/Nose/Mouth/Throat: NL Teeth, Lips, Gums, Mucous Membranes Moist Neck: NL Appearance and Movements; NL JVP, Trachea Midline Respiratory: Symmetrical Chest Expansion and Respiratory Effort, Clear to Auscultation Cardiovascular: NL Sounds; No Murmurs; No JVD, RRR Abdominal: NL Sounds; No Tenderness; No Distention Extremities: No Edema Skin: No Rash or Ulcers Neurological: Alert and Oriented x 3, NL Muscle Strength and Tone Lines/Tubes/Other Access: Clean, Dry and Intact Peripheral IV - site benign Nutrition: Taking PO's Result Diagrams: 04/12/16 05:00 04/10/16 05:05 Microbiology and Other Data: Microbiology 04/09/16 20:00 Nasal Screen MRSA (PCR)([facility]) - Final Nasal Mrsa Negative Assess/Plan/Problems-Billing Assessment: Mr. Joshua is a 70 yo male with a PMH of depression, PTSD, and Parkinson's Disease who recently experienced the suicide of his who had stage IV cancer who was admitted on 04/09/16 after a narcotic overdose in suicide attempt. - Patient Problems (1) Narcotic overdose Code(s): T40.601A - POISONING BY UNSP NARCOTICS, ACCIDENTAL, INIT SNOMED Code( s): 284417861 Comment: - Pt is no longer drowsy and no further apnea noted - Naloxone drip has been stopped for 24 hours - No PRN Naloxone needed since yesterday - Neuro checks q4 hours with prn naloxone available. (2) Suicide attempt Comment: - Patient denies suicidal ideation today. - Continue one to one monitoring. - Psych consult concurs that patient needs inpatient treatment. - Will need to coordinate with [facility]. - CM/SW following (3) Aspiration pneumonitis Code(s): J69.0 - PNEUMONITIS DUE TO INHALATION OF FOOD AND VOMIT SNOMED Code(s ): 430290960 Comment: - No evidence of pneumonia - low grade fever have resolved - Patient received Zosyn x 24 hours (4) Fever Code(s): R50.9 - FEVER, UNSPECIFIED SNOMED Code(s): 062974917 Comment: - Low grade fever, last noted on 04/11 at 1500. - Blood cultures, no growth day 3. CRP/procalcitionin WNL. - Lungs CTAB. - Suspect aspiration pneumonitis. - Also question if related to narcotic withdrawal. (5) Chronic back pain Code(s): M54.9 - DORSALGIA, UNSPECIFIED; G89.29 - OTHER CHRONIC PAIN SNOMED Code(s): 318508417 Comment: - Son reports that patient takes morphine for pain, but it is not on med rec or noted in [facility]. - Plan to request progress note from [place] tomorrow for clarification. For now, patient will have oxycodone prn for back pain. (6) Parkinson disease Code(s): G20 - PARKINSON'S DISEASE SNOMED Code(s): 23199861 Comment: - Continue carbidopa/levodopa. (7) Post traumatic stress disorder (PTSD) Code(s): F43.10 - POST-TRAUMATIC STRESS DISORDER, UNSPECIFIED SNOMED Code(s): 61469316 Comment: - With known history of PTSD, ? major depressive disorder. - Appreciate psych consult; patient will require inpatient treatment. - Continue duloxetine. (8) DVT prophylaxis Code(s): OZO3759 - SNOMED Code(s): 018729375 Comment: - Heparin SQ (9) Full code status Code(s): Z78.9 - OTHER SPECIFIED HEALTH STATUS SNOMED Code(s): 026766006 Status and Disposition: Inpatient with expected LOS > 2 days. Patient will need inpatient psychiatric care, may need transfer, previously a patient at [facility] and [facility].
[2016-04-13 21:07] VITALS: BP 127/78
--- NOTE | 2016-04-14 23:11 | TRS ---
TRANSFER SUMMARY: DATE OF ADMISSION: 04/09/16 DATE OF DISCHARGE: 04/13/16 ATTENDING PHYSICIAN: Georgina Fischer MD * (DICTATED BY FERNANDO LEYVA) PRIMARY DIAGNOSES: 1. Intentional narcotic overdose with suicide attempt. 2. Aspiration pneumonitis. 3. Sleep apnea. SECONDARY DIAGNOSES: 1. Parkinson's disease. 2. Posttraumatic stress disorder. 3. Chronic back pain. 4. Depression. CONSULTATION WHILE IN THE HOSPITAL: Binh Jeffers MD, with Psychiatry. STUDIES WHILE IN THE HOSPITAL: 1. Brain CT on 04/09/16. Radiologist's impression, no acute intracranial pathology. 2. Chest x-ray on 04/09/16. Radiologist's impression, hyperinflation with bibasilar patchy atelectasis versus early consolidation. 3. Overnight pulse oximetry on 04/12/16. Time with SpO2 less than 90 two hours and 13 minutes, 36.4%, time with SpO2 less than 80%, 26 minutes, 7.2%; time with SpO2 less than 70% one minute and 16 seconds, 0.3%. Time with SpO2 less than 89% one hour 55 minutes, 31.71%. The longest continuous time with saturation less than or equal to 89% was 13 minutes and 48 seconds. A desaturation event was defined as a decrease of saturation by 4 or more. Two events were excluded due to artifact. There were 40 saturation events over a 3- minute duration. There were 250 desaturation event of less than 3 minutes duration during which the mean high was 91.6%. The mean low was 83.0%. HOME MEDICATIONS: Include: 1. Albuterol HFA inhaler 2 puffs inhalation every 6 hours as needed for shortness of breath or wheeze. 2. Sinemet 25/100 one tablet oral every 4 hours. 3. Betamethasone dipropionate 0.05% topical daily as needed to rash. 4. Atorvastatin 40 mg oral daily. 5. Vitamin C 500 mg oral daily. 6. Cymbalta 30 mg oral every morning. 7. Vitamin B12 1000 mcg oral daily. 8. Vitamin D 2000 units oral twice daily. 9. Gabapentin 1200 mg oral 3 times daily. 10. Florinef 0.1 mg oral daily. 11. Comtan 200 mg oral twice daily. 12. Reglan 5 mg oral 3 times daily. 13. Melatonin 6 mg oral at bedtime as needed for sleep. 14. GenTeal lubricant 0.3% p.r.n. To both eyes twice daily. 15. Ropinirole 0.25 mg oral 3 times daily. 16. Vitamin B6 100 mg oral daily. 17. Omeprazole 40 mg oral daily. 18. Senokot 2 mg oral daily as needed for constipation. 19. Zantac 300 mg oral daily at bedtime. 20. Topamax 100 mg oral twice daily. 21. Hydroxyzine 10 mg oral every 8 hours. CURRENT HOSPITAL MEDICATIONS: 1. Acetaminophen 650 mg oral every 6 hours as needed for fever or chills. 2. Atorvastatin 40 mg oral daily. 3. Sinemet 25/100 one tablet oral every 4 hours. 4. Cymbalta 30 mg oral every morning. 5. Gabapentin 1200 mg oral 3 times daily. 6. Heparin 5000 units subcutaneous every 8 hours. 7. Reglan 5 mg oral 3 times daily. 8. Naloxone 0.4 mg IV push every 1 hour as needed for narcotic reversal. 9. Omeprazole 40 mg oral daily. 10. Zofran 4 mg IV every 6 hours as needed for nausea and vomiting. 11. Percocet 5/325 two tablets oral every 4 hours as needed for pain. 12. Topamax 100 mg oral twice daily. HISTORY OF PRESENT ILLNESS AND HOSPITAL COURSE: Mr. Joshua is a 70-year-old male with past medical history significant for depression, PTSD, chronic back pain who presented to the emergency room after being found next to an empty bottle of morphine with a suicide note by his neighbor. The patient was unresponsive upon arrival to the emergency room and unable to provide details. Information was initially obtained from the patient's medical record and brother , who was at bedside. Per report, the patient's had recently committed suicide after a stage IV breast cancer had metastasized to her spine and she hung herself and was discovered by the patient on March 17. The patient had a significant stress after the trauma of finding his and was hospitalized at [facility] and then transferred to the [facility]. The patient spent several weeks at these facilities undergoing treatment. The patient was felt to be stable and discharged to home. While in the emergency room, the patient was given Narcan, his respirations were greater than 10 and his O2 saturation was greater than 95% on 3 L nasal cannula. He was arousable to voice but fairly incoherent. Based off the patient 's presentation with a narcotic overdose and suicide attempt, Hospitalist Medicine asked to evaluate the patient for admission. While in the hospital, the patient was on a Narcan drip and Psychiatry was aware of his admission. The patient was placed on a one-to-one. The patient was eventually weaned off of the Narcan drip and sent to the regular floor and the patient became less arousable and was returned back to the intensive care unit for further monitoring. The patient was suspected to have aspiration pneumonitis. He had rhonchi on evaluation and leukocytosis. He received 24 hours of IV Zosyn and his low grade fevers resolved. The patient had blood cultures that showed no growth on day 3. His CRP and procalcitonin were within normal limits. The patient has been afebrile since April 11. The patient' s lungs are now clear to auscultation. As far as the patient's chronic back pain , the patient's son report that the patient takes morphine for pain. There is no record of morphine on the patient's medication reconciliation or prescribed for the patient in [facility]. Social Work have been in contact with [facility] to facilitate transferring the patient to the [place] for further inpatient psychiatric treatment. It is of note overnight on April 12, the patient overnight pulse oximetry at which time the patient was noted to have 26-minute desaturation below 80% in two hours and 12 minutes with oxygen saturations below 90%. The patient has been able to be weaned off of oxygen during his stay from initially 5 L down to room air during the day. The patient's vital signs have been stable. He has been up and ambulating in the hallways. Currently, the patient denies suicidal ideation. He has been maintained on a one-to-one monitor while in the hospital. A bed has offered at the [facility] for inpatient psychiatric treatment. The patient will be transferred there tonight. The accepting Provider is Dr. Viv Anderson and doctor to doctor report was given to Dr. Terra Ayala. Mr. Joshua is stable for transfer to the [facility] for further inpatient psychiatric treatment. Vital signs are as follows: Temperature 97.9, heart rate 81, respiratory rate 16, O2 saturation 97% on 1 L, blood pressure 130/79. DISCHARGE PLAN: Mr. Joshua will be discharged to the [facility] for inpatient psychiatric treatment. He will be activity as tolerated. Regular diet. Due the patient's oxygen desaturation overnight, it is recommended that the patient be placed on 2 L of oxygen via nasal cannula overnight and have an outpatient sleep study evaluation for the possibility of sleep apnea. As far as the patient's Parkinson's, he should be continued on his Sinemet. I will further leave the patient's psychiatric medications to psychiatric team at [facility]. Mr. Joshua should follow-up with his Primary Care provider at discharge from the [place] hospital. This is a summarized report of a complex medical history and hospital stay. For further details, please see the entire medical record. TIME SPENT: Time for this transfer summary was 50 minutes and 20 minutes were spent [id number] with the patient discussing transfer plan and instructions. CONDITION ON DISCHARGE: Stable. Reviewed by TRUDY MORLEY 04/15/16 0942 CC: [facility] * [id number]/[facility] #: [id number]
== END 2016-04-13 21:30 | DRG 917 ==
LOC: ED 18:59 → ICU 19:56 → MED 04-11 09:42 → ICU 04-11 19:15 → MED 04-12 21:40
PROVIDERS: ADMIT Hospitalist; ATTEND Internal Medicine
DX: T40.2X2A Poisoning by other opioids, intentional self-harm, initial encounter (principal); J69.0 Pneumonitis due to inhalation of food and vomit; G20 Parkinson's disease; G47.30 Sleep apnea, unspecified; F43.10 Post-traumatic stress disorder, unspecified; M54.9 Dorsalgia, unspecified; R33.0 Drug induced retention of urine; F32.9 Major depressive disorder, single episode, unspecified; Z88.6 Allergy status to analgesic agent; Y92.009 Unspecified place in unspecified non-institutional (private) residence as the place of occurrence of the external cause; Z79.891 Long term (current) use of opiate analgesic; Z79.899 Other long term (current) drug therapy
CPT/HCPCS: 36415; 36600; 70450; 71010; 80048; 80053; 80329; 81003; 81015; 82803; 83605; 84145; 85025; 85027; 85610; 85730; 86140; 87040; 87641; 93005; 94760; 94762; 99406; A9270-GY; G0480; J1644; J2310; J2405; J2543